=== PATIENT | female | born 2000 | race Caucasian/White ===

== ENCOUNTER 2023-07-10 06:10 | Emergency (ER) | payer BC, SELFPAY ==
[2023-07-10 06:21] VITALS: BP 140/100; PULSE 94; RESP 16; TEMP 37.1; O2SAT 99; BMI 32.1
[2023-07-10 06:43] VITALS: BP 126/88; PULSE 93; RESP 16; O2SAT 97
--- NOTE | 2023-07-10 07:00 | ED_ITS ---
HPI - 2 General: Chief complaint: Vaginal Bleeding Stated complaint: took test was+,vaginal bleeding Time Seen by Provider: 07/10/23 06:12 Source: patient Mode of arrival: ambulatory History of Present Illness: 23-year-old female presents to the [facility] ency room with complaint of vaginal bleeding. She believes she is approximately 2 to 3 weeks based on LMP of June 04, 2023. She had taken several home tests and went to a clinic and [place] that she reports confirmed her test. She has not had any further evaluation for she initially had some spotting that began yesterday, now has slight increase in vaginal bleeding she denies any dysuria urgency or frequency or any abdominal or pelvic pain at this time. MD Complaint: vaginal bleeding Onset (ago): day(s) Relieving factors: none Exacerbating factors: none Vaginal discharge: none Vaginal bleeding: light Date of Last Menstrual Period: 06/04/23 Associated symptoms: Deny abdominal pain or dysuria Review of Systems 2 Const: Denies: fever(s) or chills Card: Denies: chest pain Resp: Denies: dyspnea GI: Denies: abdominal pain : Denies: dysuria, urinary frequency or urinary urgency Musc: Denies: neck pain or back pain Skin/Breast: Denies: rash [facility] ED 2 Female Reproductive History: Date of last menstrual period: 06/04/23 Physical Exam 2 Const: COMMON NORMALS: no acute distress GENERAL APPEARANCE: cooperative and comfortable ORIENTATION/CONSCIOUSNESS: Yes awake, Yes oriented to person, Yes oriented to place and Yes oriented to time HENMT: COMMON NORMALS: normocephalic, atraumatic and hearing grossly normal bilaterally HEAD & SCALP: normocephalic and atraumatic Resp: COMMON NORMALS: normal respiratory effort, No retractions, No use of accessory muscles and clear to auscultation bilaterally AUSCULTATION: clear to auscultation bilaterally Cardio: COMMON NORMALS: regular rate, regular rhythm and No murmurs present (Cardio) RATE: regular rate RHYTHM: regular rhythm GI: COMMON NORMALS: Soft to palpation and No hepatosplenomegaly present A USCULTATION: Yes normoactive bowel sounds PALPATION: Yes Soft to palpation, No Tenderness to palpation present (GI), No Guarding due to palpation present (GI) and Yes No hepatosplenomegaly present Extremity: COMMON NORMALS: normal to inspection, capillary refill normal, no clubbing, cyanosis or edema, no calf tenderness and no pedal edema Neuro: SENSORIUM/ORIENTATION: Yes oriented to person, Yes oriented to place and Yes oriented to time Skin: COMMON NORMALS: no rashes or lesions noted GENERAL SKIN EXAM: no rashes or lesions noted Course 2 Vital Signs: Vital signs: Vital Signs Temperature 98.8 F 07/10/23 06:21 Pulse Rate 97 07/10/23 08:12 Respiratory Rate 16 07/10/23 06:43 Blood Pressure 126/88 07/10/23 07:21 Pulse Oximetry 96 07/10/23 08:12 Oxygen Delivery Me thod Room Air 07/10/23 07:21 MDM - OB/Uterine Contractions Medical Decision Making Patient is a beta-hCG of a little over 7. She is having cramping and slight bleeding earlier it stopped now. At this point she has essentially no navigable miscarriage. She should have her beta-hCG rechecked in 3 days. Discussed the findings with her. Did advise her she is likely to have increased cramping and bleeding over the next few days. Medical Records I reviewed the patient's medical records. Lab Data I reviewed the patient's lab results. 07/10/23 06:58 07/10/23 06:58 Laboratory Results WBC 6.71 10^3/uL (3.29-11.43) 07/10/23 06:58 RBC 4.61 10^6/uL (3.85-5.65) 07/10/23 06:58 Hgb 12.30 g/dL (11.27-16.99) 07/10/23 06:58 Hct 39.8 % (36-47) 07/10/23 06:58 MCV 86.3 fl (85-98) 07/10/23 06:58 MCH 26.7 pg (27-33) L 07/10/23 06:58 MCHC 30.9 g/dL (30-55) 07/10/23 06:58 RDW 13.7 % (12.1-15.1) 07/10/23 06:58 Plt Count 189 10^3/cmm (157-399) 07/10/23 06:58 MPV 12.1 fL (7.4-10.4) H 07/10/23 06:58 Neut % (Auto) 64.8 % 07/10/23 06:58 Lymph % (Auto) 24.7 % 07/10/23 06:58 Burnett % (Auto) 6.7 % 07/10/23 06:58 Eos % (Auto) 3.1 % 07/10/23 06:58 Baso % (Auto) 0.4 % 07/10/23 06:58 Neut # (Auto) 4.34 10^3/uL (1.8-7.7) 07/10/23 06:58 Lymph # (Auto) 1.7 10^3/uL (0.8-4.8) 07/10/23 06:58 Burnett # (Auto) 0.5 10^3/uL (0.2-0.9) 07/10/23 06:58 Eos # (Auto) 0.2 10^3/uL (0.0-0.8) 07/10/23 06:58 Baso # (Auto) 0.0 10^3/uL (0.0-0.1) 07/10/23 06:58 Nucleated RBC % (auto) 0 % 07/10/23 06:58 Nucleated RBCs # 0.0 /100WBC 07/10/23 06:58 Sodium 138 mmol/L (136-145) 07/10/23 06:58 Potassium 3.8 mmol/L (3.5-5.1) 07/10/23 06:58 Chloride 105 mmol/L (98-107) 07/10/23 06:58 Carbon Dioxide 20 mmol/L (22-29) L 07/10/23 06:58 Anion Gap 16.8 (5-19) 07/10/23 06:58 BUN 9 mg/dL (6-20) 07/10/23 06:58 Creatinine 0.5 mg/dL (0.5-0.9) 07/10/23 06:58 GFR Calculation 154.3 mL/min (90-130) H 07/10/23 06:58 Glucose 129 mg/dL (65-115) H 07/10/23 06:58 Calculated Osmolality 286 mOsm/kg (285-295) 07/10/23 06:58 Calcium 9.2 mg/dL (8.5-10.5) 07/10/23 06:58 Total Bilirubin 0.2 mg/dL (0.15-1.2) 07/10/23 06:58 AST 14 U/L (0-32) 07/10/23 06:58 ALT 14 U/L (0-33) 07/10/23 06:58 Alkaline Phosphatase 61 U/L (35-105) 07/10/23 06:58 Total Protein 6.9 g/dL (6.6-8.7) 07/10/23 06:58 Albumin 4.0 g/dL (3.5-5.2) 07/10/23 06:58 Globulin 2.9 g/dL (1.3-4.6) 07/10/23 06:58 Ser , Semi-Qnt 7.72 mIU/mL 07/10/23 06:58 Blood Type B Positive 07/10/23 06:58 Rho(D) Type Rh positive 07/10/23 06:58 No radiology studies performed this visit Discharge Plan Discharge Patient Disposition: Home Clinical Impression: Threatened miscarriage in early Condition: Stable Discharge Orders: Discharge ED (Routine); Ordered 07/10/23 Ordered By: Zach Fernandez Discharge Diet: Usual diet Discharge Activity: Increase activity as tolerated Patient Instructions: Threatened Miscarriage (ED), Opioid Safety, Pain Management Activity Restrictions/Additional Instructions: Thank you for choosing [facility] for your healthcare needs today. Please realize this is an emergency room and that we are providing you with a medical screening exam and this may not be complete and all inclusive of all the testing and or work up that you may need to determine your ailment or severity of your illness. It is very important that you follow up as instructed or that you return to the Emergency Department should you have concerns or if your condition changes or worsens in any way. You were seen today with complaints of vaginal bleeding after recently having had a positive test. Your serum beta-hCG is very low in single digits. This should be rechecked in 3 days to verify if it has increased or decreased. Coding Level of Care Code ED Lumber Piler for Harjinder Morales
[2023-07-10 07:12] LABS: Basophils % 0.4 %; Eosinophils # 0.2 10^3/uL (0.0-0.8); Eosinophils % 3.1 %; Hematocrit 39.8 % (36-47); Lymphocytes # 1.7 10^3/uL (0.8-4.8); Lymphocytes % 24.7 %; Mean Corpuscular HGB Conc 30.9 g/dL (30-55); Mean Corpuscular Hemoglobin 26.7 pg (27-33); Mean Corpuscular Volume 86.3 fl (85-98); Mean Platelet Volume 12.1 fL (7.4-10.4); Monocytes # 0.5 10^3/uL (0.2-0.9); Monocytes % 6.7 %; Neutrophils # 4.34 10^3/uL (1.8-7.7); Neutrophils % 64.8 %; Nucleated Red Blood Cells % 0 %; Platelet Count 189 10^3/cmm (157-399); Red Blood Count 4.61 10^6/uL (3.85-5.65); Red Cell Distribution Width 13.7 % (12.1-15.1); White Blood Count 6.71 10^3/uL (3.29-11.43)
[2023-07-10 07:21] VITALS: BP 126/88; PULSE 94; O2SAT 98
[2023-07-10 07:33] LABS: HCG Quantitative 7.72 mIU/mL
[2023-07-10 07:44] LABS: Alanine Aminotransferase 14 U/L (0-33); Alkaline Phosphatase 61 U/L (35-105); Anion Gap 16.8 (5-19); Aspartate Amino Transferase 14 U/L (0-32); Blood Urea Nitrogen 9 mg/dL (6-20); Calcium 9.2 mg/dL (8.5-10.5); Carbon Dioxide 20 mmol/L (22-29); Chloride 105 mmol/L (98-107); Globulin 2.9 g/dL (1.3-4.6); Glomerular Filtration Rate 154.3 mL/min (90-130); Glucose 129 mg/dL (65-115); Osmolality Calculated 286 mOsm/kg (285-295); Potassium 3.8 mmol/L (3.5-5.1); Sodium 138 mmol/L (136-145); Total Bilirubin 0.2 mg/dL (0.15-1.2); Total Protein 6.9 g/dL (6.6-8.7)
[2023-07-10 08:12] VITALS: PULSE 97; O2SAT 96
== END 2023-07-10 08:05 | disposition home or self-care (01) ==
PROVIDERS: Emergency Provider Family Medicine
DX: O20.0 Threatened abortion (principal); Z3A.01 Less than 8 weeks gestation of pregnancy
CPT/HCPCS: 36415; 80053; 84702; 85025; 86900; 99283

== ENCOUNTER → 2023-07-11 09:10 | Outpatient (BNVA) | payer BC, MEDICAID, SELFPAY | PROVIDERS: Visit Provider Nurse Practitioner Women's Health | DX: O20.0 Threatened abortion (principal); N92.6 Irregular menstruation, unspecified; Z32.00 Encounter for pregnancy test, result unknown | CPT/HCPCS: 81025; 84702 ==

== ENCOUNTER → 2024-02-24 08:14 | Outpatient (BNVA) | payer BC, MEDICAID, SELFPAY | PROVIDERS: Visit Provider Nurse Practitioner Women's Health | DX: Z31.9 Encounter for procreative management, unspecified (principal) | CPT/HCPCS: 82652 ==

== ENCOUNTER → 2024-09-03 15:41 | Outpatient (BNVA) | payer BC, MEDICAID, SELFPAY | PROVIDERS: Visit Provider Nurse Practitioner Women's Health | DX: Z12.4 Encounter for screening for malignant neoplasm of cervix (principal); N92.6 Irregular menstruation, unspecified; Z01.419 Encounter for gynecological examination (general) (routine) without abnormal findings | CPT/HCPCS: 82670; 83001; 83002; 83036; 83520; 83525; 84402; 84403; 84443; 88175 ==

== ENCOUNTER → 2024-09-14 11:47 | Outpatient (BNVA) | payer BC, MEDICAID, SELFPAY | PROVIDERS: Visit Provider Nurse Practitioner Women's Health | DX: Z31.9 Encounter for procreative management, unspecified (principal) | CPT/HCPCS: 84144 ==

== ENCOUNTER → 2024-09-17 13:38 | Outpatient (BNVA) | payer BC, MEDICAID, SELFPAY | PROVIDERS: Visit Provider Nurse Practitioner Women's Health | DX: N92.6 Irregular menstruation, unspecified (principal) | CPT/HCPCS: 76830 ==

== ENCOUNTER → 2024-12-28 11:59 | Outpatient (BNVA) | payer BC, SELFPAY | PROVIDERS: Visit Provider Emergency Medicine | DX: J02.9 Acute pharyngitis, unspecified (principal) | CPT/HCPCS: 87071; 87880 ==